=== PATIENT | female | born 1975 | race Caucasian/White ===

== ENCOUNTER 2019-07-18 10:46 | Emergency (ER) | payer OTHER ==
[~2019-07-18] VITALS: Ht 162.6 cm; Wt 68.2 kg
[~2019-07-18 10:46] MED LIST: BENTYL 10MG10 MG/CAP PO; PROZAC 10MG10 MG PO
[2019-07-18 10:57] VITALS: TEMP 98.5
[2019-07-18] MEDS ORDERED: LEXAPRO20 MG PO (11:00)
[2019-07-18] MEDS ORDERED: TYLENOL 500MG500 MG (11:07)
[2019-07-18] MEDS ORDERED: IBU800 M1 PO (11:26)
[2019-07-18] MEDS ORDERED: LIDODERM 5% PATC1 EA TP (11:26)
[2019-07-18] MEDS ORDERED: FLEXERIL 1010 MG/TAB PO (11:26)
[2019-07-18 13:01] VITALS: BP 103/66; PULSE 62
== END 2019-07-18 13:15 | disposition home or self-care (01) ==
LOC: COL.ER 10:46
DX: M54.5 Low back pain (principal); F32.9 Major depressive disorder, single episode, unspecified; F17.210 Nicotine dependence, cigarettes, uncomplicated; Z98.51 Tubal ligation status; Z90.710 Acquired absence of both cervix and uterus
CPT/HCPCS: J1885; J2360

== ENCOUNTER 2019-12-25 06:41 | Day surgery (SDC) | payer OTHER ==
[~2019-12-25] VITALS: Ht 162.6 cm; Wt 67.5 kg
[~2019-12-25 06:41] MED LIST changes: +FLEXERIL 1010 MG/TAB PO; +IBU800 M1 PO; +LEXAPRO20 MG PO; +LIDODERM 5% PATC1 EA TP; +TYLENOL 500MG500 MG PO
[2019-12-25 07:13] VITALS: BP 120/93; PULSE 66; TEMP 98.2
--- NOTE | 2019-12-25 07:21 | NUR ---
TO [place] AT 0650- CALL LIGHT IN REACH WILL CALL ANTH[facility] FOR RIDE HOME
[2019-12-25 08:20] VITALS: BP 115/61; PULSE 63; TEMP 97.6
--- NOTE | 2019-12-25 08:20 | NUR ---
Patient brought back to [facility] [address] via cart. Ambulated from cart to chair with one assist. Placed on monitors, vital signs stable. Patient is oriented but slightly drowsy. Denies pain or nausea. Requests toast and juice. Report recieved from Katherin SEVERINO. Warm blanket provided, call otoole within reach. Patient will be driven home by friend Simone. Will continue to monitor.
[2019-12-25 08:35] VITALS: BP 98/56; PULSE 60
--- NOTE | 2019-12-25 08:35 | NUR ---
Patient tolerating food and drink without difficulty. Friend notified to come pick patient up. Will continue to monitor.
[2019-12-25 08:50] VITALS: BP 111/62; PULSE 48
--- NOTE | 2019-12-25 08:50 | NUR ---
Patient states she is feeling ready to go home. Dr. Ellis at bedside to explain results. IV removed, intact. Patient to get dressed at this time. Will continue to monitor.
--- NOTE | 2019-12-25 09:05 | NUR ---
Discharge instructions reviewed with patient, verbalized understanding. Ambulated to bathroom without difficulty. Awaiting arrival of ride.
--- NOTE | 2019-12-25 09:10 | NUR ---
Patient brought down to lobby via wheel chair. Friend Simone at front door. Simone to drive patient home. All belongings in hand.
== END 2019-12-25 09:10 | disposition home or self-care (01) ==
LOC: SDCO 06:41
DX: K52.839 Microscopic colitis, unspecified (principal); F32.9 Major depressive disorder, single episode, unspecified; D64.9 Anemia, unspecified; K92.1 Melena; F17.210 Nicotine dependence, cigarettes, uncomplicated; Z90.710 Acquired absence of both cervix and uterus; G89.29 Other chronic pain; Z79.899 Other long term (current) drug therapy; Z79.891 Long term (current) use of opiate analgesic; Z90.49 Acquired absence of other specified parts of digestive tract
CPT/HCPCS: J2704; J3010; J7030